=== PATIENT | male | born 1955 | race Caucasian/White ===

== ENCOUNTER → 2020-10-09 11:22 | Outpatient (BNVA) | payer MEDICARE, SELFPAY | PROVIDERS: PCP Internal Medicine; Referring Provider Internal Medicine; Visit Provider Internal Medicine Cardiovascular Disease | DX: I25.10 Atherosclerotic heart disease of native coronary artery without angina pectoris (principal); I10 Essential (primary) hypertension | CPT/HCPCS: 99212 ==

== ENCOUNTER 2022-12-07 12:33 | Outpatient (AMB) | payer MEDICARE, SELFPAY ==
[2022-12-07 12:37] VITALS: BP 116/72; PULSE 73; O2SAT 94; BMI 33.9
--- NOTE | 2022-12-07 12:37 | A.OFFPC_ITS ---
Vital Signs 12/07/22 12:37 Height 6 ft 2 in Weight 119.748 kg BMI 33.9 BP 116/72 Blood Pressure Location Lt brachial Position Sitting Pulse 73 Pulse Source Pulse Oximeter Pulse Oximetry (%) 94 Oxygen Delivery Method Room Air Intake Visit Reasons: Discharged 11/22/22 Difficulty Swallowing Solids Allergies ceftriaxone [Ceftriaxone] Allergy (Mild, Verified 12/07/22 12:37) RASH Tobacco use date assessed: 12/07/22 Fall risk assessment: No Falls in past year Last assessed Fall Risk: 12/07/22 Dental Screening Dental Screen Date: 12/07/22 Did you have a dental visit in the last 12 months?: No Did you have a dental problem in the last 6 months where you did not have access to dental care?: No Was dental information given to patient?: No HPI HPI Comments History of Present Illness Details 67-year-old male with history of type 2 diabetes, COPD, who is a current tobacco user diagnosed with squamous cell carcinoma of the lung presents to the office for hospital discharge follow-up. He had presented to [facility] ED and was admitted from 10/13-10/19 after complaining of orthopnea, decreased urine output, increased bilateral lower extremity and noncompliance a daily torsemide. On arrival, hematology studies and chemistries were unremarkable, troponins were flat. Negative for COVID-19. He was hemodynamically stable. BNP was slightly elevated at 137. Chest x-ray was negative for any acute abnormality. He was admitted for suspected diastolic dysfunction with probable CHF. He was treated with IV diuresis change to oral torsemide. Last echocardiogram was 01/2022 with normal LV systolic function with EF 65-70%. He was treated with nebulizers for his COPD with possible exacerbation but did not receive any steroids. Who is discharged to [place] for short-term rehab on oral torsemide. He has noted significant improvement in bilateral extremity edema and denies any dyspnea on exertion or orthopnea. He is able to ambulate 600 ft without becoming short of breath. He has been discharged home from [place]. He is reporting significant reflux and dysphagia when he eats but denies any burning sensation. No epigastric pain, nausea, vomiting. He states he did require G-tube 3-4 years ago due to dysphagia. He follows a chopped diet. 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 Denies globus sensation. [facility] Medical History AVM (arteriovenous malformation) of colon (~05/2021) Benign essential hypertension Benign prostatic hyperplasia with lower urinary tract symptoms CAD (coronary artery disease) COPD (chronic obstructive pulmonary disease) CVA (cerebral vascular accident) Diabetes mellitus Diabetic polyneuropathy GERD without esophagitis HTN (hypertension) Hyperlipidemia Insomnia Obesity (BMI 30-39.9) Pulmonary nodule Pure hypercholesterolemia Screening for prostate cancer Smoker Squamous cell carcinoma of right lung Type 2 diabetes mellitus with diabetic polyneuropathy, without long-term current use of insulin Surgical History History of appendectomy History of colonoscopy Hx of knee surgery Hx of rotator cuff surgery Stented coronary artery Family History Father Cancer CAD (coronary artery disease) Mother CAD (coronary artery disease) Cancer Social History Housing: House Patient Tobacco Use Status: Former Tobacco user Tobacco use type: Cigarette Years Smoked: 6 months ago e-Cigarette/Vaping Use: Never Used Second Hand Smoke Exposure: Yes service: No Current occupational status: retired Cognitive needs: Yes (walker) Hearing needs: No Vision needs: No Questionnaire PHQ-9 Over the last 2 weeks, how often have you been bothered by any of the following problems? 1. Little interest or pleasure in doing things: not at all 2. Feeling down, depressed, or hopeless: not at all 3. Trouble falling or staying asleep, or sleeping too much: not at all 4. Feeling tired or having little energy: not at all 5. Poor appetite or overeating: not at all 6. Feeling bad about yourself - or that you are a failure or have let yourself or your family down: not at all 7. Trouble concentrating on things, such as reading the newspaper or watching television: not at all 8. Moving or speaking so slowly that other people could have noticed. Or the opposite - being so fidgety or restless that you have been moving around a lot more than usual: not at all 9. Thoughts that you would be better off or of hurting yourself in some way: not at all Total score: 0 Depression Screening Interpretation: Negative Source: Developed by Drs. Zachariah Denson, Kathy Alonzo, Artie Garsia and colleagues, with an educational josy from [employer] Thrive Questionnaire Date Thrive assessed: 12/07/22 I am a: Patient What is your living situation today?: I have a steady place to live Within the past 12 months, did the food you bought not last and you didn't have the money to get more?: Never true Within the past 12 months, did you worry whether your food would run out before you got money to buy more?: Never true Do you have trouble paying for medicines?: No Do you have trouble getting transportation to medical appointments?: No Do you have trouble paying your heating and electricity bill?: No Do you have trouble taking care of your child, family member or friend?: No Do you have trouble with day-to-day activities such as bathing, preparing meals, shopping, managing finances, etc.?: No Are you currently unemployed and looking for a job?: No Are you interested in more education?: No Currently or been in a relationship where the following occur: no concerns reported AUDIT C Alcohol Use Questionnaire (AUDIT-C) 1. How often do you have a drink containing alcohol?: Never 3. How often do you have six or more drinks on one occasion?: Never Total Score: 0 Score Reviewed/Action Taken: Yes CLEVELAND-7 AMB Questionnaire CLEVELAND-7 Date CLEVELAND - 7 assessed: 12/07/22 Feeling nervous, anxious, or on edge: 0 = Not at all Not being able to stop or control worryin = Not at all Worrying too much about different things: 0 = Not at all Trouble relaxin = Not at all Being so restless that it is hard to sit still: 0 = Not at all Becoming easily annoyed or irritable: 0 = Not at all Feeling afraid as if something awful might happen: 0 = Not at all Total [place]-7 score (0-4 normal; 5-9 mild; 10-14 moderate; 15-21 severe): 0 Source: Developed by Kathy Nichole Kurt Kroenke and colleagues, with an educational josy from [employer] Review of Systems Const All systems reviewed & are unremarkable except as noted in HPI and below Physical exam (Primary Care) Vital Signs: Last Vital Signs Pulse 73 12/07/22 12:37 BP 116/72 12/07/22 12:37 Pulse Ox 94 12/07/22 12:37 Oxygen Delivery Method Room Air 12/07/22 12:37 BMI result Body Mass Index 33.9 Tobacco/Smoking Status: Tobacco use Status Tobacco use date assessed 12/07/22 12/07/22 12:38 Patient Tobacco Use Status Former Tobacco user 12/07/22 12:47 Tobacco use type Cigarette 12/07/22 12:38 e-Cigarette/Vaping Use Never Used 12/07/22 12:38 PHQ-9: PHQ-9 Score PHQ-9: Total score 0 12/07/22 13:23 Depression Screening Interpretation: Negative Thrive Assessment: Date of Thrive Assessment Date Thrive assessed 12/07/22 12/07/22 12:38 Currently or been in a relationship where the following occur: no concerns reported Const Other: Constitutional - Awake and Alert, No apparent distress Eyes - PERRLA, EOMI Cardiovascular - S1S2, RRR, 2+ edema Respiratory - Normal lung expansion, Normal respiratory effort, No respiratory distress, CTA bilaterally Gastrointestinal - NT / ND; +BS; No rebound or guarding Extremities - no calf tenderness bilaterally, no swelling Skin - Warm/Dry Neurological - Alert & oriented x3 Psychological - Appropriate affect Results AMB Hemoglobin A1c AMB Hemoglobin A1c 7.5 % Last Edit by Laisha Braxton CMA on 12/07/22 12 :50 Results Reviewed Results Reviewed: Laboratory Last Values Hgb A1c (Clinic) 7.5 % (4.0-6.0) H 12/07/22 12:39 [facility] DS, H&P, cbc, bmp, trops, bnp, cxr Assessment and Plan Assessment & Plan (1) Dysphagia: Code(s): R13.10 - Dysphagia, unspecified Plan: Referral placed to gastroenterology. Barium swallow ordered. Continue with chopped diet (2) GERD without esophagitis: Comment: (+) Hx of duodenitis Code(s): K21.9 - Gastro-esophageal reflux disease without esophagitis Plan: Continue on pantoprazole 40 mg daily. Referral placed to gastroenterology, barium swallow ordered as above. Continue with chopped diet. (3) CHF (congestive heart failure), NYHA class III: Code(s): I50.9 - Heart failure, unspecified Plan: No acute exacerbation on exam. Required IV diuresis at [facility] due to noncompliance with torsemide. Strict compliance with torsemide and spironolactone advised. Lacked echocardiogram showed diastolic dysfunction but normal LV systolic function with preserved ejection fraction. FOllow up with acrdiology as scheduled. (4) CAD (coronary artery disease): Comment: with prior CAD and remote stenting of the RCA Code(s): I25.10 - Atherosclerotic heart disease of [place] coronary artery without angina pectoris Qualifiers: Associated angina: without angina Coronary Disease-Associated Artery/Lesion type: [place] artery [place] vs. transplanted heart: [place] heart Qualified Code(s): I25.10 - Atherosclerotic heart disease of [place] coronary artery without angina pectoris Plan: No anginal chest pain. Troponins flat during admission. Contiue with bb, DAPT, statin Orders: Orders [place] barium swallow 12/07/22 K21.9 - Gastro-esophageal reflux disease without esophagitis, R13.10 - Dysphagia, unspecified Basic Metabolic Panel 12/07/22 I50.9 - Heart failure, unspecified AMB Hemoglobin A1c 12/07/22 Z13.9 - Encounter for screening, unspecified Referrals Gastroenterology Referral K21.9 - Gastro-esophageal reflux disease without esophagitis, R13.10 - Dysphagia, unspecified Cardiology Referral I25.10 - Atherosclerotic heart disease of [place] coronary artery without angina pectoris, I50.9 - Heart failure, unspecified, R13.10 - Dysphagia, unspecified Medications: New spironolactone 12.5 mg (1/2 x 25 mg) PO DAILY 30 tabs 2RF Refilled pantoprazole 40 mg PO QAM 30 days 30 tabs 5RF K21.9 - Gastro-esophageal reflux disease without esophagitis Coding Level of Care Code Est Pt Level 5 (72732) Diagnoses Dysphagia R13.10 GERD without esophagitis K21.9 CHF (congestive heart failure), NYHA class III I50.9 CAD (coronary artery disease) I25.10 Associated angina: without angina Coronary Disease-Associated Artery/Lesion type: [place] artery [place] vs. transplanted heart: [place] heart Additional Codes PHQ-9 - 93169 - PHQ-9 Billing: Y ([id number]) Time Spent (min) 45 Comment time reviewing, interview with patient, doucmentation
== END 2022-12-07 13:30 | disposition home or self-care (01) ==
PROVIDERS: PCP Internal Medicine; Visit Provider Physician Assistant
DX: K21.9 Gastro-esophageal reflux disease without esophagitis (principal); I50.9 Heart failure, unspecified; E11.42 Type 2 diabetes mellitus with diabetic polyneuropathy; R13.10 Dysphagia, unspecified; I25.10 Atherosclerotic heart disease of native coronary artery without angina pectoris
CPT/HCPCS: 83036; 99215

== ENCOUNTER 2023-01-10 15:25 | Outpatient (REF) | payer MEDICARE, SELFPAY ==
[2023-01-10 18:24] LABS: Anion Gap 12 (12-20); Blood Urea Nitrogen 21 mg/dL (9-16); Calcium 9.9 mg/dL (8.4-10.2); Carbon Dioxide 25 mmol/L (22-29); Chloride 104 mmol/L (96-108); Estimated Glomerular Filt Rate > 60; Glucose Random 171 mg/dL (60-115); Potassium 4.3 mmol/L (3.3-5.1); Sodium 137 mmol/L (135-145)
== END 2023-01-10 15:26 | disposition home or self-care (01) ==
LOC: HO.LAB 15:25
PROVIDERS: Absent Provider Physician Assistant; PCP Internal Medicine; Visit Provider Nurse Practitioner Family
DX: I25.10 Atherosclerotic heart disease of native coronary artery without angina pectoris (principal); I11.0 Hypertensive heart disease with heart failure; I50.32 Chronic diastolic (congestive) heart failure; E78.00 Pure hypercholesterolemia, unspecified
CPT/HCPCS: 36415; 80048; 93005; 99212

== ENCOUNTER 2023-01-10 15:25 | Outpatient (AMB) | payer MEDICARE, SELFPAY ==
[2023-01-10 15:30] VITALS: BP 116/80; PULSE 58; O2SAT 97; BMI 33.8
--- NOTE | 2023-01-10 15:30 | A.OFFVIS_ITS ---
Intake Vital Signs 01/10/23 15:30 Height 6 ft 2 in Weight 263 lb BMI 33.8 BP 116/80 Blood Pressure Location Lt brachial Position Sitting Pulse 58 Pulse Source Pulse Oximeter Pulse Oximetry (%) 97 Oxygen Delivery Method Room Air Intake Visit Reasons: follow up Intake Note: Pt presents to the office today for a follow up. Pt states he is feeling well and denies any SOB or chest pains. Allergies ceftriaxone [Ceftriaxone] Allergy (Mild, Verified 01/10/23 15:32) RASH Medication List - Last Reconciled 01/10/23 by Mansi Mims CRITICAL CARE PHYSICIAN-C albuterol sulfate 2.5 mg (3 mL) continuous nebulization Q4-6H PRN 30 days aspirin (Adult Low Dose Aspirin) 81 mg PO DAILY atorvastatin 40 mg PO DAILY 90 days budesonide-formoterol 160-4.5 mcg/actuation (Symbicort) 2 puffs inhalation BID 30 days carvedilol 25 mg PO BID 90 days [Compression stockings Appropriate size.] docusate sodium 100 mg PO BID PRN 30 days ferrous sulfate 325 mg PO DAILY fluticasone furoate-vilanterol 200-25 mcg/dose (Breo Ellipta) 1 inh inhalation DAILY gabapentin 300 mg PO TID 30 days ipratropium bromide 2.5 mL inhalation Q6H 30 days lactulose 20 grams (30 mL) PO BEDTIME PRN 10 days lorazepam Take 1 tablet 30 minutes before procedure. May repeat x 1 dose after 15 to 20 minutes if needed PO PRN; 1 day metformin 1,000 mg (2 x 500 mg) PO BID 90 days pantoprazole 40 mg PO QAM 30 days spironolactone 12.5 mg (1/2 x 25 mg) PO DAILY tamsulosin 0.4 mg PO DAILY 90 days torsemide 40 mg PO DAILY 30 days trazodone 100 mg PO BEDTIME 30 days HPI follow up HPI Details Daniel is a 67-year-old male with past medical history obesity, hypertension, hyperlipidemia, diabetes, COPD, CAD with remote RCA stent, Congestive heart failure who presents for follow-up. His last prior visit to our office was 10/09/2020. Today he reports that he has been in and out of the hospital over the last few years. He has had issues with COPD and been told he has had heart failure. He is now on torsemide 40 mg daily and tells me he is doing much better on that. His prior leg edema has mostly resolved. He has some shortness of breath with activity that he relates to his COPD. He is mostly sedentary and ambulates only short distances with a walker. At this visit he is sitting in a wheelchair. He denies PND, he sleeps in a recliner which is his norm. No chest discomfort at rest or with activity, palpitations, presyncope, syncope, falls. Taking meds as directed. His friend is with him today. 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 Screening for prostate cancer Pulmonary nodule Benign prostatic hyperplasia with lower urinary tract symptoms Insomnia Diabetic polyneuropathy Type 2 diabetes mellitus with diabetic polyneuropathy, without long-term current use of insulin Obesity (BMI 30-39.9) Smoker Pure hypercholesterolemia Benign essential hypertension GERD without esophagitis COPD (chronic obstructive pulmonary disease) CVA (cerebral vascular accident) Hyperlipidemia Diabetes mellitus HTN (hypertension) CAD (coronary artery disease) Surgical History History of colonoscopy Stented coronary artery History of appendectomy Hx of rotator cuff surgery Hx of knee surgery Family History Father Cancer CAD (coronary artery disease) Mother CAD (coronary artery disease) Cancer Social History Housing: House Patient Tobacco Use Status: Former Tobacco user Tobacco use type: Cigarette Years Smoked: 6 months ago e-Cigarette/Vaping Use: Never Used Second Hand Smoke Exposure: Yes service: No Current occupational status: retired Cognitive needs: Yes (walker) Hearing needs: No Vision needs: No Review of Systems Const All systems reviewed & are unremarkable except as noted in HPI and below Card Denies chest pain at rest, Denies chest pain with activity and Reports dyspnea on exertion Resp Reports dyspnea on exertion Musc Reports abnormal gait and Reports limited range of motion Neuro Reports abnormal gait Physical Exam Vital Signs: Last Vital Signs Pulse 58 01/10/23 15:30 BP 116/80 09/26/23 15:30 Pulse Ox 97 01/10/23 15:30 Oxygen Delivery Method Room Air 01/10/23 15:30 BMI result Body Mass Index 33.8 Const General: cooperative, comfortable and no acute distress Orientation/consciousness: patient oriented x3 Neck Neck: Yes normal visual inspection Resp Effort & Inspection: normal respiratory effort Auscultation: clear to auscultation bilaterally, no crackles, no rales, no rhonchi and no wheezes Cardio Jugular venous distension: no JVD Rate: regular rate Rhythm: regular rhythm Heart sounds: S1 normal heart sound present, S2 normal heart sound present, no murmurs and no rubs Neuro General: patient oriented x3 Extrem General: Yes normal to inspection Psych Appearance: grossly normal Mental Status: mental status grossly normal Speech and movement: Normal speech and movement present Office Procedures EKG Details: Today, read by me, sinus bradycardia, first-degree AV block, rate 57, QTC 406 millisecond [id number], Complete Assessment & Plan Assessment & Plan (1) CAD (coronary artery disease): Comment: with prior CAD and remote stenting of the RCA Code(s): I25.10 - Atherosclerotic heart disease of [place] coronary artery without angina pectoris Qualifiers: Coronary Disease-Associated Artery/Lesion type: [place] artery [place] vs. transplanted heart: [place] heart Associated angina: without angina Qualified Code(s): I25.10 - Atherosclerotic heart disease of [place] coronary artery without angina pectoris Plan: History of CAD with remote RCA stent. No reports of anginal sounding symptoms. EKG done today showing sinus bradycardia, first-degree AV block, heart rate 57, no acute ST or T-wave abnormalities. He continues on med management for stable CAD including aspirin 81 mg daily indefinitely. He is on atorvastatin 40 mg daily with LDL goal less than 70. He is on carvedilol 25 mg b.i.d.. He was previously on Plavix but tells me that has since been stopped. He believes he had a recent echocardiogram at [facility]. Will work on obtaining that result for our records. Vital signs currently well controlled. No med changes made. Signs and symptoms of angina reviewed. Cardiology follow-up in 6 months, sooner if needed. (2) Congestive heart failure: Code(s): I50.9 - Heart failure, unspecified Qualifiers: Heart failure type: diastolic Heart failure chronicity: chronic Qualified Code(s): I50.32 - Chronic diastolic (congestive) heart failure Plan: Reported history of heart failure. He tells me he was recently started on torsemide which has improved his leg edema. On exam he does not appear fluid overloaded. He says he is getting lab work drawn today as ordered by his PCP. Continue carvedilol, Aldactone and torsemide. Signs and symptoms of heart failure reviewed. (3) Benign essential hypertension: Code(s): I10 - Essential (primary) hypertension Plan: Well controlled at present time. No med changes made. He tells me his losartan had been previously stopped cause his blood pressure was good. (4) Pure hypercholesterolemia: Code(s): E78.00 - Pure hypercholesterolemia, unspecified Plan: Rh[place] LDL goal less than 70. Last cholesterol in our system 01/31/2019 had LDL of 50. He will need an updated lipid profile in the near future. Continue atorvastatin 40 mg daily at present Coding Level of Care Code Est Pt Level 4 (32717) Diagnoses Coronary artery disease involving [place] coronary artery of [place] heart without angina pectoris I25.10 Coronary Disease-Associated Artery/Lesion type: [place] artery [place] vs. transplanted heart: [place] heart Associated angina: without angina Chronic diastolic congestive heart failure I50.32 Heart failure type: diastolic Heart failure chronicity: chronic Benign essential hypertension I10 Pure hypercholesterolemia E78.00 CPT Codes EKG - CPT: [id number], Complete ([id number]) Time Spent (min) 28
== END 2023-01-10 16:07 | disposition home or self-care (01) ==
PROVIDERS: PCP Internal Medicine; Visit Provider Nurse Practitioner Family
DX: I25.10 Atherosclerotic heart disease of native coronary artery without angina pectoris (principal); I50.32 Chronic diastolic (congestive) heart failure; I10 Essential (primary) hypertension; E78.00 Pure hypercholesterolemia, unspecified
CPT/HCPCS: 93010; 99214

== ENCOUNTER 2023-04-24 13:26 | Outpatient (AMB) | payer MEDICARE, SELFPAY ==
--- NOTE | 2023-04-24 13:20 | MHC.PC.OV ---
Vital Signs 04/24/23 13:25 Height 6 ft 2 in Intake Visit Reasons: dm and follow up [phone] Director Corporate Compliance Required: No Allergies ceftriaxone [Ceftriaxone] Allergy (Mild, Verified 04/24/23 14:02) RASH Medication List - Last Reconciled 04/24/23 by Patrick Vo MD albuterol sulfate 2.5 mg (3 mL) continuous nebulization Q4-6H PRN 30 days aspirin (Adult Low Dose Aspirin) 81 mg PO DAILY atorvastatin 40 mg PO DAILY 90 days budesonide-formoterol 160-4.5 mcg/actuation (Symbicort) 2 puffs inhalation BID 30 days carvedilol 25 mg PO BID 90 days [Compression stockings Appropriate size.] diclofenac sodium 1% 2 grams topical QID PRN docusate sodium 100 mg PO BID PRN 30 days ferrous sulfate 325 mg PO DAILY fluticasone furoate-vilanterol 200-25 mcg/dose (Breo Ellipta) 1 inh inhalation DAILY gabapentin 300 mg PO TID 30 days ipratropium bromide 2.5 mL inhalation Q6H 30 days lactulose 20 grams (30 mL) PO BEDTIME PRN 10 days metformin 1,000 mg (2 x 500 mg) PO BID 90 days pantoprazole 40 mg PO QAM 30 days roflumilast 500 mcg PO DAILY spironolactone 12.5 mg (1/2 x 25 mg) PO DAILY tamsulosin 0.4 mg PO DAILY 90 days torsemide 40 mg PO DAILY 30 days trazodone 100 mg PO BEDTIME 30 days Tobacco use date assessed: 04/24/23 Fall risk assessment: 1 Fall in past year Last assessed Fall Risk: 04/24/23 Dental Screening Dental Screen Date: 04/24/23 Did you have a dental visit in the last 12 months?: No Did you have a dental problem in the last 6 months where you did not have access to dental care?: No Was dental information given to patient?: No HPI dm and follow up [phone] HPI Details Patient's follow-up visit / consultation today is done over the phone - this is a Telehealth visit Patient's current medications have been reviewed and verified with patient and / or caregiver / proxy and have been updated accordingly in the medication list I have not seen patient for follow up in almost 2 years (last seen by me on 07/09/2021) although he was seen by our nurse practitioner here back in December 2022 Patient states that he currently feels okay and just needs a couple of his Rx refilled States that he has COPD and aside from going out briefly for a walk, states that he mostly just stays home and does not do too much in terms of physical activity He mostly sleeps in a recliner at night and has been doing this for years now He denies any headaches or dizziness Denies any chest pains, has some GIANG only with increased exertion No nausea/vomiting, no abdominal pain No change in bowel habits noted [facility] Medical History 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 Screening for prostate cancer Pulmonary nodule Benign prostatic hyperplasia with lower urinary tract symptoms Insomnia Diabetic polyneuropathy Type 2 diabetes mellitus with diabetic polyneuropathy, without long-term current use of insulin Obesity (BMI 30-39.9) Smoker Pure hypercholesterolemia Benign essential hypertension GERD without esophagitis COPD (chronic obstructive pulmonary disease) CVA (cerebral vascular accident) Hyperlipidemia Diabetes mellitus HTN (hypertension) CAD (coronary artery disease) Surgical History History of colonoscopy Stented coronary artery History of appendectomy Hx of rotator cuff surgery Hx of knee surgery Family History Father Cancer CAD (coronary artery disease) Mother CAD (coronary artery disease) Cancer Social History Housing: House Patient Tobacco Use Status: Former Tobacco user Tobacco use type: Cigarette Years Smoked: 6 months ago e-Cigarette/Vaping Use: Never Used Second Hand Smoke Exposure: Yes service: No Current occupational status: retired Cognitive needs: Yes (walker) Hearing needs: No Vision needs: No Questionnaire PHQ-9 Over the last 2 weeks, how often have you been bothered by any of the following problems? 1. Little interest or pleasure in doing things: not at all 2. Feeling down, depressed, or hopeless: not at all 3. Trouble falling or staying asleep, or sleeping too much: not at all 4. Feeling tired or having little energy: not at all 5. Poor appetite or overeating: not at all 6. Feeling bad about yourself - or that you are a failure or have let yourself or your family down: not at all 7. Trouble concentrating on things, such as reading the newspaper or watching television: not at all 8. Moving or speaking so slowly that other people could have noticed. Or the opposite - being so fidgety or restless that you have been moving around a lot more than usual: not at all 9. Thoughts that you would be better off or of hurting yourself in some way: not at all Total score: 0 Depression Screening Interpretation: Negative Depression Screening Done: Yes 53884 - PHQ-9 Billing: Yes Source: Developed by Drs. Zachariah Denson, Kathy Alonzo, Artie Garsia and colleagues, with an educational josy from [employer]. Thrive Questionnaire Date Thrive assessed: 04/24/23 I am a: Patient What is your living situation today?: I have a steady place to live Within the past 12 months, did the food you bought not last and you didn't have the money to get more?: Never true Within the past 12 months, did you worry whether your food would run out before you got money to buy more?: Never true Do you have trouble paying for medicines?: No Do you have trouble getting transportation to medical appointments?: No Do you have trouble paying your heating and electricity bill?: No Do you have trouble taking care of your child, family member or friend?: No Do you have trouble with day-to-day activities such as bathing, preparing meals, shopping, managing finances, etc.?: No Are you currently unemployed and looking for a job?: No Are you interested in more education?: No Currently or been in a relationship where the following occur: no concerns reported AUDIT C Alcohol Use Questionnaire (AUDIT-C) 1. How often do you have a drink containing alcohol?: Never 3. How often do you have six or more drinks on one occasion?: Never Total Score: 0 Score Reviewed/Action Taken: Yes [place]-7 AMB Questionnaire CLEVELAND-7 Date CLEVELAND - 7 assessed: 04/24/23 Feeling nervous, anxious, or on edge: 0 = Not at all Not being able to stop or control worryin = Not at all Worrying too much about different things: 0 = Not at all Trouble relaxin = Not at all Being so restless that it is hard to sit still: 0 = Not at all Becoming easily annoyed or irritable: 0 = Not at all Feeling afraid as if something awful might happen: 0 = Not at all Total [place]-7 score (0-4 normal; 5-9 mild; 10-14 moderate; 15-21 severe): 0 Source: Developed by Drs. Zachariah Denson, Kathy Alonzo, Artie Garsia and colleagues, with an educational josy from [employer]. Review of Systems Const Denies chills, Reports fatigue, Denies fever(s) and Denies headache(s) ENT Denies dysphagia, Denies dizziness, Denies otalgia, Denies headache(s), Denies odynophagia and Denies sore throat Card Denies chest pain, Denies palpitations and Reports dyspnea on exertion (mild) Resp Denies cough, Reports dyspnea on exertion (mild) and Denies wheezing GI Denies abdominal pain, Denies constipation, Denies dysphagia, Denies heartburn, Denies diarrhea, Denies nausea, Denies odynophagia and Denies vomiting Denies dysuria, Denies nocturia and Denies urinary frequency Musc Reports back pain (occasionally) and Reports arthralgias (involving multiple joints) Skin/Breast Denies rash Neuro Denies dizziness and Denies headache(s) Endo Reports fatigue and Denies palpitations Aller/Immun Denies wheezing Physical exam (Primary Care) Vital Signs: Physical examination is not performed as visit / consultation today is done over the phone - Telehealth visit All physical findings indicated here, if present, are as per patient's and / or caregivers / proxy's report Tobacco/Smoking Status: Tobacco use Status Tobacco use date assessed 04/24/23 04/24/23 13:25 Patient Tobacco Use Status Former Tobacco user 04/24/23 13:25 Tobacco use type Cigarette 04/24/23 13:25 e-Cigarette/Vaping Use Never Used 04/24/23 13:25 PHQ-9: PHQ-9 Score PHQ-9: Total score 0 04/24/23 14:07 Depression Screening Interpretation: Negative Thrive Assessment: Date of Thrive Assessment Date Thrive assessed 12/07/22 04/24/23 13:25 Currently or been in a relationship where the following occur: no concerns reported Telehealth Telehealth Location of provider rendering services: practice address Location of patient: address on file Patient Identification confirmed using: Name, : Yes Telehealth method: voice only Patient verbally consented to treatment: Yes Patient verbally consented to billing insurance company: Yes Patient informed of any privacy concerns related to visit: Yes Minutes spent on Phone/Video with Pt.: 23 Assessment and Plan Assessment & Plan (1) Congestive heart failure: Code(s): I50.9 - Heart failure, unspecified Qualifiers: Heart failure type: diastolic Heart failure chronicity: chronic Qualified Code(s): I50.32 - Chronic diastolic (congestive) heart failure Plan: Reinforced fluid restriction Continue Torsemide 40 mg QD Follow up with cardiology as scheduled (2) CAD (coronary artery disease): Comment: with prior CAD and remote stenting of the RCA Code(s): I25.10 - Atherosclerotic heart disease of [place] coronary artery without angina pectoris Qualifiers: Coronary Disease-Associated Artery/Lesion type: [place] artery [place] vs. transplanted heart: [place] heart Associated angina: without angina Qualified Code(s): I25.10 - Atherosclerotic heart disease of [place] coronary artery without angina pectoris Plan: Continue Aspirin 81 mg QD Patient supposedly needed to continue dual antiplatelet Tx due to prior stroke and significant atherosclerotic plaquing of the transverse aorta but it looks like he was taken off Clopidogrel at some point a few months ago Follow up with cardiology as scheduled (3) Pure hypercholesterolemia: Code(s): E78.00 - Pure hypercholesterolemia, unspecified Plan: Reinforced low cholesterol diet Continue Atorvastatin 40 mg QD Will have patient recheck his labs and fasting lipids in 4 months for follow up (4) Benign essential hypertension: Code(s): I10 - Essential (primary) hypertension Plan: Reinforced low sodium diet - goal is systolic BP of at least 130 mm or less Continue Carvedilol 25 mg BID; is also on Torsemide 40 mg QD He is reminded to continue having his blood pressure monitored regularly (5) Type 2 diabetes mellitus with diabetic polyneuropathy, without long-term current use of insulin: Code(s): E11.42 - Type 2 diabetes mellitus with diabetic polyneuropathy Plan: His HgbA1c was at 7.5% when last checked in November 2022 (in-office HgbA1c was at 4.9% back in June 2021) - goal is <7.0% Reinforced diabetic diet Continue Metformin 1000 mg BID (6) Diabetic polyneuropathy: Code(s): E11.42 - Type 2 diabetes mellitus with diabetic polyneuropathy Qualifiers: Diabetes mellitus type: type 2 Qualified Code(s): E11.42 - Type 2 diabetes mellitus with diabetic polyneuropathy Plan: Continue Gabapentin 300 mg TID (7) GI bleeding: Code(s): K92.2 - Gastrointestinal hemorrhage, unspecified Qualifiers: GI bleed type/associated pathology: unspecified gastrointestinal hemorrhage type Qualified Code(s): K92.2 - Gastrointestinal hemorrhage, unspecified Plan: Resolved with no recent recurrence; patient has been stable for a while now Was primarily due to AVM diagnosed by colonoscopy that required thermal therapy Follow up with GI as scheduled or as needed (8) Anemia: Code(s): D64.9 - Anemia, unspecified Qualifiers: Anemia type: other cause Other causes of anemia: acute posthemorrhagic Qualified Code(s): D62 - Acute posthemorrhagic anemia Plan: S/P blood transfusion at [facility] a couple of years ago when he had GI bleeding Continue Ferrous sulfate 325 mg BID He has not had his CBC checked here in a while now and should get this rechecked with his other labs in a few months (9) COPD (chronic obstructive pulmonary disease): Code(s): J44.9 - Chronic obstructive pulmonary disease, unspecified Qualifiers: COPD type: unspecified COPD Qualified Code(s): J44.9 - Chronic obstructive pulmonary disease, unspecified Plan: Continue Symbicort 160-4.5 mcg 2 puffs BID, Roflumilast 500 mcg QD, Albuterol solution 0.083% vial nebulizer every 6 hours PRN and Mucinex ER 1 to 2 tablets every 12 hours PRN - was on Breo Ellipta previously but his insurance started charging him a lot of money for his Rx copay Follow up with pulmonary as scheduled (10) Squamous cell carcinoma of right lung: Comment: Dx by CT-guided core needle Bx Code(s): C34.91 - Malignant neoplasm of unspecified part of right bronchus or lung Plan: Completed 5 cycles of radiotherapy in late 2021 and tolerated Tx well - is not a surgical candidate Follow up with oncology and pulmonary as scheduled for continuing surveillance (11) GERD without esophagitis: Comment: (+) Hx of duodenitis Code(s): K21.9 - Gastro-esophageal reflux disease without esophagitis Plan: Dietary restrictions reinforced Continue Pantoprazole 40 mg QD (12) Benign prostatic hyperplasia with lower urinary tract symptoms: Code(s): N40.1 - Benign prostatic hyperplasia with lower urinary tract symptoms Qualifiers: Lower urinary tract symptom detail: urinary frequency Qualified Code(s): N40.1 - Benign prostatic hyperplasia with lower urinary tract symptoms; R35.0 - Frequency of micturition Plan: Continue Tamsulosin 0.4 mg Q HS Follow up with urology as scheduled (13) Insomnia: Code(s): G47.00 - Insomnia, unspecified Qualifiers: Insomnia type: unspecified Qualified Code(s): G47.00 - Insomnia, unspecified Plan: Sleep hygiene reinforced Continue Trazodone 100 mg Q HS PRN (14) Smoker: Code(s): F17.200 - Nicotine dependence, unspecified, uncomplicated Plan: Counseled again on smoking cessation (15) Obesity (BMI 30-39.9): Code(s): E66.9 - Obesity, unspecified Plan: Reinforced diet/exercise as tolerated/lose weight Plan Follow up in 4 months Orders: Orders Complete Blood Count Auto Diff 4 Months I10 - Essential (primary) hypertension TSH reflex Free T4 4 Months E78.00 - Pure hypercholesterolemia, unspecified UA CC w/rflx Micro + Cult 4 Months R30.0 - Dysuria Vitamin B12 and Folate 4 Months E53.8 - Deficiency of other specified B group vitamins Microalbumin, Random (w Creat) 4 Months E11.9 - Type 2 diabetes mellitus without complications Hemoglobin A1c 4 Months E11.9 - Type 2 diabetes mellitus without complications Comprehensive Herman. Panel Fast 4 Months E78.00 - Pure hypercholesterolemia, unspecified Lipid Panel 4 Months E78.00 - Pure hypercholesterolemia, unspecified Vitamin D 25-OH Total 4 Months E55.9 - Vitamin D deficiency, unspecified B Type Natriuretic Peptide 4 Months I50.9 - Heart failure, unspecified Coding Level of Care Code Tele Est Pt Level 4 (74036) Diagnoses Chronic diastolic congestive heart failure I50.32 Heart failure type: diastolic Heart failure chronicity: chronic Coronary artery disease involving [place] coronary artery of [place] heart without angina pectoris I25.10 Coronary Disease-Associated Artery/Lesion type: [place] artery [place] vs. transplanted heart: [place] heart Associated angina: without angina Pure hypercholesterolemia E78.00 Benign essential hypertension I10 Type 2 diabetes mellitus with diabetic polyneuropathy, without long-term current use of insulin E11.42 Diabetic polyneuropathy associated with type 2 diabetes mellitus E11.42 Diabetes mellitus type: type 2 Gastrointestinal hemorrhage, unspecified gastrointestinal hemorrhage type K92.2 GI bleed type/associated pathology: unspecified gastrointestinal hemorrhage type Anemia due to acute blood loss D62 Anemia type: other cause Other causes of anemia: acute posthemorrhagic Chronic obstructive pulmonary disease, unspecified COPD type J44.9 COPD type: unspecified COPD Squamous cell carcinoma of right lung C34.91 GERD without esophagitis K21.9 Benign prostatic hyperplasia with urinary frequency N40.1; R35.0 Lower urinary tract symptom detail: urinary frequency Insomnia, unspecified type G47.00 Insomnia type: unspecified Smoker F17.200 Obesity (BMI 30-39.9) E66.9
== END 2023-04-24 16:54 | disposition home or self-care (01) ==
LOC: HO.HMGH 13:26
PROVIDERS: PCP Internal Medicine; Visit Provider Internal Medicine
DX: I11.0 Hypertensive heart disease with heart failure (principal); I50.32 Chronic diastolic (congestive) heart failure; I25.10 Atherosclerotic heart disease of native coronary artery without angina pectoris; E11.42 Type 2 diabetes mellitus with diabetic polyneuropathy; K92.2 Gastrointestinal hemorrhage, unspecified; D62 Acute posthemorrhagic anemia; K21.9 Gastro-esophageal reflux disease without esophagitis; N40.1 Benign prostatic hyperplasia with lower urinary tract symptoms; R35.0 Frequency of micturition
CPT/HCPCS: 99443

== ENCOUNTER → 2023-09-29 23:59 | Outpatient (BNV) | payer MEDICARE, SELFPAY | PROVIDERS: PCP Internal Medicine; Visit Provider Internal Medicine | DX: I11.0 Hypertensive heart disease with heart failure (principal); I50.33 Acute on chronic diastolic (congestive) heart failure; E11.65 Type 2 diabetes mellitus with hyperglycemia; J44.89 Other specified chronic obstructive pulmonary disease | CPT/HCPCS: G0180 ==

== ENCOUNTER 2024-08-01 08:35 | Outpatient (AMB) | payer MEDICARE, SELFPAY ==
[2024-08-01 08:39] VITALS: BP 118/72; PULSE 75
--- NOTE | 2024-08-01 08:39 | A.OFFVIS_ITS ---
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 Allergies ceftriaxone [Ceftriaxone] Allergy (Mild, Verified 08/01/24 08:43) RASH Medication List - Last Reconciled 08/01/24 by Mansi Mims, INSURANCE CLAIM APPROVER-C albuterol sulfate 2.5 mg (3 mL) continuous nebulization Q4-6H PRN 30 days aspirin (Adult Low Dose Aspirin) 81 mg PO DAILY atorvastatin 40 mg PO DAILY 90 days budesonide-formoterol 160-4.5 mcg/actuation (Symbicort) 2 puffs inhalation BID 30 days carvedilol 25 mg PO BID 90 days [Compression stockings Appropriate size.] diclofenac sodium 1% 2 grams topical QID PRN docusate sodium 100 mg PO BID PRN 30 days ferrous sulfate 325 mg PO DAILY fluticasone furoate-vilanterol 200-25 mcg/dose (Breo Ellipta) 1 inh inhalation DAILY gabapentin 300 mg PO TID 30 days ipratropium bromide 2.5 mL inhalation Q6H 30 days lactulose 20 grams (30 mL) PO BEDTIME PRN 10 days metformin 1,000 mg (2 x 500 mg) PO BID 90 days pantoprazole 40 mg PO QAM 30 days roflumilast 500 mcg PO DAILY spironolactone 12.5 mg (1/2 x 25 mg) PO DAILY tamsulosin 0.4 mg PO DAILY 90 days torsemide 40 mg PO DAILY 30 days trazodone 100 mg PO BEDTIME 30 days HPI HPI rt hip replacement/NE ortho: Details: Daniel is a 69-year-old male with past medical history obesity, hypertension, hyperlipidemia, diabetes, COPD, CAD with remote RCA stent, Congestive heart failure who presents for follow-up. His last prior visit to our office was 01/10/2023. Today he reports that he has been having significant discomfort in his right hip and is in need of a total right hip replacement. He says he is scheduled for 09/05/2024. He denies any chest discomfort at rest or with activity. He denies shortness of breath, PND, orthopnea. He has chronic leg edema and wears Sanjiv wraps on his legs daily. He uses oxygen in the day as needed and during the night. He can ambulate short distances with the use of a walker. Majority of time he is sedentary and uses a wheelchair. He is hoping to increase his physical activity once his hip replacement is complete. He takes his meds as directed but does not know what they are as [facility] and they are given to him. 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 Screening for prostate cancer Pulmonary nodule Benign prostatic hyperplasia with lower urinary tract symptoms Insomnia Diabetic polyneuropathy Type 2 diabetes mellitus with diabetic polyneuropathy, without long-term current use of insulin Obesity (BMI 30-39.9) Smoker Pure hypercholesterolemia Benign essential hypertension GERD without esophagitis COPD (chronic obstructive pulmonary disease) CVA (cerebral vascular accident) Hyperlipidemia Diabetes mellitus HTN (hypertension) CAD (coronary artery disease) Surgical History History of colonoscopy Stented coronary artery History of appendectomy Hx of rotator cuff surgery Hx of knee surgery Family History Father Cancer CAD (coronary artery disease) Mother CAD (coronary artery disease) Cancer Social History Housing: House Patient Tobacco Use Status: Former Tobacco user Tobacco use type: Cigarette Years Smoked: 6 months ago e-Cigarette/Vaping Use: Never Used Second Hand Smoke Exposure: Yes service: No Current occupational status: retired Cognitive needs: Yes (walker) Hearing needs: No Vision needs: No Review of Systems Const All systems reviewed & are unremarkable except as noted in HPI and below ENT Denies dizziness Card Denies chest pain, Denies chest pain at rest, Denies chest pain with activity, Denies rapid heart rate, Denies pedal edema, Denies edema, Denies leg edema, Denies lightheadedness, Denies palpitations, Denies dyspnea, Denies dyspnea on exertion and Denies orthopnea Resp Denies cough, Denies dyspnea and Denies dyspnea on exertion GI Denies hematochezia and Denies change in stool character Musc Denies abnormal gait, Reports limited range of motion, Reports muscle cramps, Denies muscle weakness, Denies numbness, Denies radiating pain into limb, Denies stiffness and Denies tingling Neuro Denies abnormal gait, Denies dizziness, Denies numbness and Denies tingling Endo Denies palpitations Physical Exam Const General: cooperative, comfortable and no acute distress Orientation/consciousness: patient oriented x3 Neck Neck: Yes normal visual inspection Resp Effort & Inspection: normal respiratory effort Auscultation: clear to auscultation bilaterally, no crackles, no rales, no rhonchi and no wheezes Cardio Jugular venous distension: no JVD Rate: regular rate Rhythm: regular rhythm Heart sounds: S1 normal heart sound present, S2 normal heart sound present, no murmurs and no rubs Neuro General: patient oriented x3 Extrem General: Yes normal to inspection Psych Appearance: grossly normal Mental Status: mental status grossly normal Speech and movement: Normal speech and movement present Office Procedures EKG Details: Today, read by me, sinus rhythm with first-degree AV block, incomplete right bundle branch block, can not exclude prior anterior infarct, rate 75, QTC 426 millisecond [id number], Complete Assessment & Plan Assessment & Plan (1) CAD (coronary artery disease): Comment: with prior CAD and remote stenting of the RCA Code(s): I25.10 - Atherosclerotic heart disease of [place] coronary artery without angina pectoris Category: Medical Qualifiers: Coronary Disease-Associated Artery/Lesion type: [place] artery [place] vs. transplanted heart: [place] heart Associated angina: without angina Qualified Code(s): I25.10 - Atherosclerotic heart disease of [place] coronary artery without angina pectoris Plan: History of CAD with remote RCA stent. No reports of anginal sounding symptoms. EKG done today showing sinus rhythm, first-degree AV block, incomplete right bundle branch block heart rate 75. He continues on med management for stable CAD including aspirin 81 mg daily indefinitely. He is on atorvastatin 40 mg daily with LDL goal less than 70. He is on carvedilol 25 mg b.i.d.. He is now preop for orthopedic surgery. He has had no recent ischemic eval. Will check a pharmacological nuclear stress test and echocardiogram. Will update his lab work.. Signs and symptoms of angina reviewed. Cardiology follow-up in 6 months, sooner if needed. (2) Congestive heart failure: Code(s): I50.9 - Heart failure, unspecified Category: Medical Qualifiers: Heart failure type: diastolic Heart failure chronicity: chronic Qualified Code(s): I50.32 - Chronic diastolic (congestive) heart failure Plan: Reported history of heart failure. He continues on daily torsemide and does report some chronic leg edema with use of Sanjiv wraps. On exam he does not appear fluid overloaded. Will update labs at time of his cardiac testing. At present continue carvedilol, losartan and torsemide. Signs and symptoms of heart failure reviewed. (3) Benign essential hypertension: Code(s): I10 - Essential (primary) hypertension Category: Medical Plan: Well controlled at present time. No med changes made. (4) Pure hypercholesterolemia: Code(s): E78.00 - Pure hypercholesterolemia, unspecified Category: Medical Plan: [place] LDL goal less than 70. Last cholesterol in our system 01/31/2019 had LDL of 50. He will need an updated lipid profile, ordered. Continue atorvastatin 40 mg daily at present (5) Preop cardiovascular exam: Code(s): Z01.810 - Encounter for preprocedural cardiovascular examination Category: Medical Plan: Preop for right total hip replacement. from [facility], on 09/05/2024. He has known coronary artery disease with remote coronary artery stenting. Will update cardiac testing including pharmacological nuclear stress test and echocardiogram. This note will be updated once test results are known. Plan Time spent on chart review, documentation, interview and assessment Orders: Orders CA lexiscan stress w michelle Today I25.10 - Atherosclerotic heart disease of [place] coronary artery without angina pectoris, Z01.810 - Encounter for preprocedural cardiovascular examination Comprehensive Met. Panel Today I10 - Essential (primary) hypertension, I25.10 - Atherosclerotic heart disease of [place] coronary artery without angina pectoris Lipid Panel Today E78.00 - Pure hypercholesterolemia, unspecified, I10 - Essential (primary) hypertension, I25.10 - Atherosclerotic heart disease of [place] coronary artery without angina pectoris Hemoglobin A1c Today I25.10 - Atherosclerotic heart disease of [place] coronary artery without angina pectoris NM cardiolite stress test Today I25.10 - Atherosclerotic heart disease of [place] coronary artery without angina pectoris, Z01.810 - Encounter for preprocedural cardiovascular examination CA echo transthoracic complete Today I10 - Essential (primary) hypertension, I25.10 - Atherosclerotic heart disease of [place] coronary artery without angina pectoris Complete Blood Count Auto Diff Today I10 - Essential (primary) hypertension, I25.10 - Atherosclerotic heart disease of [place] coronary artery without angina pectoris Coding Level of Care Code Est Pt Level 4 (94256) Complex EM visit Add On G2211 Diagnoses Coronary artery disease involving [place] coronary artery of [place] heart without angina pectoris I25.10 Coronary Disease-Associated Artery/Lesion type: [place] artery [place] vs. transplanted heart: [place] heart Associated angina: without angina Chronic diastolic congestive heart failure I50.32 Heart failure type: diastolic Heart failure chronicity: chronic Benign essential hypertension I10 Pure hypercholesterolemia E78.00 Preop cardiovascular exam Z01.810 CPT Codes EKG - CPT: [id number], Complete ([id number]) Time Spent (min) 32
== END 2024-08-01 09:14 | disposition home or self-care (01) ==
LOC: HO.HCS 08:36
PROVIDERS: PCP Internal Medicine; Visit Provider Nurse Practitioner Family
DX: I25.10 Atherosclerotic heart disease of native coronary artery without angina pectoris (principal); I50.32 Chronic diastolic (congestive) heart failure; I10 Essential (primary) hypertension; E78.00 Pure hypercholesterolemia, unspecified; Z01.810 Encounter for preprocedural cardiovascular examination
CPT/HCPCS: 93010; 99214; G2211

== ENCOUNTER → 2024-08-01 08:35 | Outpatient (BNVA) | payer MEDICARE, SELFPAY | PROVIDERS: PCP Internal Medicine; Visit Provider Nurse Practitioner Family | DX: Z01.810 Encounter for preprocedural cardiovascular examination (principal); E78.5 Hyperlipidemia, unspecified; E66.9 Obesity, unspecified; I25.10 Atherosclerotic heart disease of native coronary artery without angina pectoris; I11.0 Hypertensive heart disease with heart failure; I50.32 Chronic diastolic (congestive) heart failure; E78.00 Pure hypercholesterolemia, unspecified; Z87.891 Personal history of nicotine dependence | CPT/HCPCS: 93005; 99212 ==

== ENCOUNTER → 2024-08-20 09:51 | Outpatient (REF) | payer MEDICARE, SELFPAY ==
--- NOTE | 2024-08-20 09:58 | CA_ITS ---
Acquisition Time: 2024-08-20 10:17:51 Total Exercise Time: 00:02:00 Test Indications: Abnormal ECG,Pre-Op Evaluation Medications: SEE H&P Protocol: LEXISCAN Max HR: 90 BPM 60% of Pred: 150 BPM Max BP: 116/62 mmHG Max Work Load: 1.0 METS Pharmacological stress test with Lexiscan while pt moves his legs in the chair, with reports of SOB, without any arrythmias, with normotensive response to injection. Nondiagnostic EKG for ischemia. In recovery, pt treated with IVP Aminophylline 75 mg to reverse Lexiscan after which pt feeling back to baseline. Nuclear images pending. Test reviewed with Dr. Hicks. Referred By: Mansi Mims Electronically Signed By: Timmy Victor
== END ==
LOC: HO.CARD 09:51
PROVIDERS: PCP Internal Medicine; Visit Provider Nurse Practitioner Family
DX: Z01.810 Encounter for preprocedural cardiovascular examination (principal); I25.10 Atherosclerotic heart disease of native coronary artery without angina pectoris
CPT/HCPCS: 78452; 93017; A9500; J0280; J2785

== ENCOUNTER → 2024-08-20 09:58 | Outpatient (BNV) | payer MEDICARE, SELFPAY | PROVIDERS: PCP Internal Medicine | DX: R94.31 Abnormal electrocardiogram [ECG] [EKG] (principal) | CPT/HCPCS: 78452 ==

== ENCOUNTER → 2024-08-22 09:08 | Outpatient (REF) | payer MEDICARE, SELFPAY ==
--- NOTE | 2024-08-22 09:10 | CA_ITS ---
Transthoracic Echocardiogram Patient (Last, First, Middle): Daniel Hernandez, Gender: Male Date of : 1955 Age: 69 Procedure Date: 08/22/2024 Procedure Type: Transthoracic Echocardiogram Location: OP Height: 187.96 cm Weight: 127.46 kg BSA: 2.51 m2 Heart Rate: 67 bpm BP: 118 / 72 mmHg Dobby Loom Weaver: VESTA/MARTIN Referring MD: Mansi Mims GRAIN I [email or web address] Symptoms: I25.10 - Atherosclerotic heart disease of [place] coronary artery without... Study Quality: Technically Difficult/Adequate ECG Rhythm: Sinus Conclusions: - The left ventricular systolic function is normal. The visually estimated ejection fraction is between 60-65%. - There is moderate septal and moderate basal asymmetric hypertrophy. - The basal inferolateral segment is hypokinetic. Wall motion assessment is suboptimal. - No obvious valvular pathology seen on this study. Findings Left Ventricle Normal left ventricular cavity size. The left ventricular systolic function is normal. The visually estimated ejection fraction is between 60-65%. Diastolic function is normal for age. There is moderate septal and moderate basal asymmetric hypertrophy. Wall Motion Rest Echo Findings The basal inferolateral segment is hypokinetic. Right Ventricle Normal right ventricular cavity size and systolic function. Atria Both atria are normal in size. Aortic Valve There is mild calcification of the aortic valve. There is no aortic valve stenosis. There is no aortic valve regurgitation. Mitral Valve The mitral valve appears normal. There is mild mitral annular calcification. There is no mitral valve regurgitation. There is no mitral valve stenosis. Pulmonic Valve The pulmonic valve is likely normal. Tricuspid Valve There is trace tricuspid valve regurgitation. There is no evidence of pulmonary hypertension. Great Vessels The asc aorta is normal in size. Venous The inferior vena cava is dilated and collapses less than 50% with inspiration. Pericardium/Pleural Prominent epicardial adipose tissue noted. There is no evidence of pericardial effusion. Prior Study Comparison No prior study available for comparison. Recommendations, Care & Conclusions No obvious valvular pathology seen on this study. Measurements 2D Linear Measurements IVSd: 1.40 0.6-0.9/0.6-1.0 cm LVIDd: 3.69 3.9-5.3/4.2-5.9 cm LVIDd Index: 1.47 2.4-3.2/2.2-3.1 cm/m2 LVIDs: 1.61 2.0-3.6 cm LVPWd: 1.27 0.7-1.1 cm LA Diam: 3.90 2.7-3.8/3.0-4.0 cm LAIDs Index: 1.55 1.5-2.3 cm/m2 LV Mass: 215.30 67-162/88-224 g LV Mass Index: 85.78 43-95/49-115 g/m2 LVOT Diam: 2.20 3.0+(-)1.3 cm 2D Systolic Function EF 4C: 70.60 >55% EF 2C: 64.10 >55% EF BiP: 68.40 >55% Mitral Valve MV Pk E: 0.84 MV PK A: 0.82 MV Decel Time: 354.00 E/A: 1.00 E'Lateral: 8.49 E'Medial: 6.53 E/E' Med: 12.80 E/E' Lat: 9.80 PHT: 104.00 MVA PHT: 2.12 Decel [place]: 2.36 Aortic Valve AoV Pk [place]: 1.76 AoV Mn [place]: 1.15 AoV VTI: 0.33 AoV Pk Grad: 12.00 Aov Mn Grad: 6.00 MAYKEL Cont.VTI: 2.69 LVOT LVOT Pk [place]: 1.16 LVOT Mn [place]: 0.79 LVOT VTI: 0.23 LVOT Pk Grad: 5.00 LVOT Mn Grad: 3.00 LVOT Diam: 2.20 LVOT Area: 3.80 Diastolic Function MV Pk E: 0.84 MV Pk A: 0.82 E/A: 1.00 E'Medial: 6.53 E/E' Med: 12.80 E' Laterial: 8.49 E/E' Lat: 9.80 Right Ventricle TAPSE (mm): 18.90 TVS' [place]: 11.10 Tricuspid Valve TR Pk [place]: 1.01 TR Pk Grad: 4.00 RA Press: 15.00 RVSP: 19.00 Great Vessels Aorta Sinus of Valsalva: 3.80 2.0-3.5 cm Ao Asc: 3.60 2.1-3.4 cm Ao Arch: 2.60 Pulmonary Valve PV Pk [place]: 0.95 Peak PV Grad: 4.00 Updated in Other Vendor System with Status of Final Jose Hicks MD electronically signed on 08/24/2024 10:17:00 AM with status of Final
== END ==
LOC: HO.CARD 09:08
PROVIDERS: PCP Internal Medicine; Visit Provider Nurse Practitioner Family
DX: I25.10 Atherosclerotic heart disease of native coronary artery without angina pectoris (principal); I10 Essential (primary) hypertension
CPT/HCPCS: 93306

== ENCOUNTER → 2024-08-22 09:10 | Outpatient (BNV) | payer MEDICARE, SELFPAY | PROVIDERS: PCP Internal Medicine; Visit Provider Internal Medicine | DX: I25.10 Atherosclerotic heart disease of native coronary artery without angina pectoris (principal) | CPT/HCPCS: 93306 ==